=== PATIENT | female | born 1970 | race Caucasian/White ===

== ENCOUNTER 2016-08-30 12:52 | Emergency (ER) | payer OTHER ==
[2016-08-30 12:57] VITALS: BP 126/73; PULSE 81; TEMP 98.2; BMI 23.6
[2016-08-30] MEDS ORDERED: CYCLOBENZAPRINE HCL 10 MG TABLET (FP) PO ONE (13:59)
[2016-08-30] MEDS ORDERED: KETOROLAC TROMETHAMINE 60 MG/2 ML VIAL IM ONE (13:59)
--- NOTE | 2016-08-30 13:59 | PDOC ---
History of Present Illness - General Chief Complaint: Back Pain Stated Complaint: LOWER BACK PAIN Time Seen by Provider: 08/30/16 13:51 History Source: Patient Exam Limitations: No Limitations - History of Present Illness Initial Comments: 08/30/16 14:53 45-year-old female complaining of low back pain since yesterday with radiation down her right buttock. Patient states history of sciatica for the past 2-3 years but has not seen a physician recently nor has she had imaging since initial complaint. Patient denies any sensory changes distally, saddle anesthesia, incontinence, weakness of lower extremity, or skin discoloration. Patient states has not taken anything for the pain and decided come to the ER for further evaluation and medication management. Occurred: reports: yesterday Pain Location: reports: back, lower extremity Method of Injury: Yes: unknown Loss of Consciousness: no loss of consciousness Associated Symptoms (Fall): denies symptoms Past History - Past Medical History Allergies/Adverse Reactions: Allergies Allergy/AdvReac Type Severity Reaction Status Date / Time No Known Allergies Allergy Verified 08/30/16 12:57 Home Medications: Ambulatory Orders Cyclobenzaprine HCl [Flexeril 10 mg] 10 mg PO BID PRN #10 tablet MDD 2 08/30/16 Ibuprofen [Motrin -] 600 mg PO TID PRN #21 tablet 08/30/16 Other medical history: denies - Immunization History Immunization Up to Date: Yes - Psycho/Social/Smoking Cessation Hx Anxiety: No Suicidal Ideation: No Smoking Status: Yes Smoking History: Current every day smoker Number of Cigarettes Smoked Daily: 10 Information on smoking cessation initiated: No Hx Alcohol Use: Yes (social) Drug/Substance Use Hx: No Patient Lives Alone: No Lives with/in: spouse/SO Review of Systems - Review of Systems Able to Perform ROS?: Yes Constitutional: No: Symptoms Reported HEENTM: No: Symptoms Reported ABD/GI: No: Symptoms Reported Musculoskeletal: Yes: Back Pain, Muscle Pain (rt buttock) Integumentary: No: Symptoms Reported Neurological: No: Symptoms reported Endocrine: No: Symptoms Reported Hematologic/Lymphatic: No: Symptoms Reported *Physical Exam - Vital Signs Last Vital Signs Temp Pulse Resp BP Pulse Ox 98.2 F 81 18 126/73 100 08/30/16 12:54 08/30/16 12:54 08/30/16 12:54 08/30/16 12:54 08/30/16 12:54 - Physical Exam General Appearance: Yes: Nourished, Appropriately Dressed. No: Apparent Distress Extremity: positive: Normal Capillary Refill, Normal Inspection, Normal Range of Motion, Tender (right buttock over sciatica). negative: Pedal Edema Neurologic: positive: Motor Strength 5/5 (ambulatory) Medical Decision Making - Medical Decision Making 08/30/16 14:55 patient with low back pain radiating down her right buttock. Patient states history of low back pain with sciatica. Patient denies any sensory changes and had point tenderness at L2 to L5 with right sciatic tenderness. Patient in the past has been in the ER but no imaging has been done in the past. Patient will be ordered for lumbar x-ray, Flexeril, and Toradol injection. 08/30/16 15:12 X-ray negative for acute findings. Patient states feeling much better after receiving the above medications. Will discharge patient home with the same. *DC/Admit/Observation/Transfer Diagnosis at time of Disposition: Low back pain Qualifiers: Chronicity: acute Back pain laterality: right Sciatica presence: with sciatica Sciatica laterality: sciatica of right side Qualified Code(s): M54.41 - Lumbago with sciatica, right side - Discharge Dispostion Disposition: HOME Condition at time of disposition: Improved - Prescriptions Prescriptions: Cyclobenzaprine HCl [Flexeril 10 mg] 10 mg PO BID PRN #10 tablet MDD 2 PRN Reason: Back Pain Ibuprofen [Motrin -] 600 mg PO TID PRN #21 tablet PRN Reason: Pain - Patient Instructions Printed Discharge Instructions: DI for Low Back Pain Additional Instructions: Xray - for acute findings. Please take medication as needed for pain. Follow up with your physician.
[2016-08-30] MEDS ORDERED: KETOROLAC TROMETHAMINE 60 MG/2 ML VIAL ONE (14:01)
[2016-08-30] MEDS ORDERED: CYCLOBENZAPRINE HCL 10 MG TABLET (FP) ONE (14:01)
== END 2016-08-30 15:02 | disposition home or self-care (01) ==
LOC: JERFT 12:52
PROC: 3E0233Z Introduction of Anti-inflammatory into Muscle, Percutaneous Approach (ICD-10-PCS; principal; 2016-08-30)
DX: M54.41 Lumbago with sciatica, right side (principal)
CPT/HCPCS: 72100-TC; 99281-25

== ENCOUNTER 2017-10-22 15:44 | Emergency (ER) | payer OTHER ==
--- NOTE | 2017-10-22 16:04 | PDOC ---
Rapid Medical Evaluation Time Seen by Provider: 10/22/17 16:03 Medical Evaluation: Allergies Allergy/AdvReac Type Severity Reaction Status Date / Time No Known Allergies Allergy Verified 10/22/17 16:03 10/22/17 16:03 I have performed a brief in-person evaluation of this patient. The patient presents with a chief complaint of: "low back pain shooting down L leg starting this morning when i got out of bed", hx of sciatica, took motrin w/ o relief Pertinent physical exam findings: uncomfortable appearing, refusing to sit s/t pain I have ordered the following: urine preg The patient will proceed to the ED for further evaluation. Discharge Disposition - Diagnosis Low back pain - Referrals Referrals: Mark Garay MD [Primary Care Provider] - - Patient Instructions - Post Discharge Activity
[2017-10-22 16:06] VITALS: BP 120/72; PULSE 86; TEMP 98.3; BMI 25.7
[2017-10-22] MEDS ORDERED: KETOROLAC TROMETHAMINE 60 MG/2 ML VIAL IM ONE (16:48)
[2017-10-22] MEDS ORDERED: KETOROLAC TROMETHAMINE 60 MG/2 ML VIAL ONE (16:54)
--- NOTE | 2017-10-22 16:56 | PDOC ---
History of Present Illness - General Chief Complaint: Back Pain Stated Complaint: LOW BACK PAIN Time Seen by Provider: 10/22/17 16:03 History Source: Patient Exam Limitations: No Limitations - History of Present Illness Initial Comments: 10/22/17 16:49 Patient came for recurrence acute on chronic intermittent sciatica and low back pain is currently under pain management for muscle denies any exercise or trauma , has seen pain management last week but does not feel any treatments are helping to relieve her pain. Occurred: reports: other Severity: reports: moderate, severe Pain Location: reports: back Method of Injury: Yes: unknown Modifying Factors: improves with: None Loss of Consciousness: no loss of consciousness Associated Symptoms (Fall): denies symptoms Past History - Travel Traveled outside of the country in the last 30 days: No Close contact w/someone who was outside of country & ill: No - Past Medical History Allergies/Adverse Reactions: Allergies Allergy/AdvReac Type Severity Reaction Status Date / Time No Known Allergies Allergy Verified 10/22/17 16:03 Home Medications: Ambulatory Orders Cyclobenzaprine HCl 10 mg PO Q8H PRN #14 tablet 10/22/17 COPD: No Other medical history: SCIATICA - Immunization History Immunization Up to Date: Yes - Suicide/Smoking/Psychosocial Hx Smoking Status: Yes Smoking History: Current every day smoker Have you smoked in the past 12 months: Yes Number of Cigarettes Smoked Daily: 10 Information on smoking cessation initiated: Yes 'Breaking Loose' booklet given: 10/22/17 Hx Alcohol Use: Yes (social) Drug/Substance Use Hx: No Substance Use Type: None Review of Systems - Review of Systems Able to Perform ROS?: Yes Is the patient limited Grenadian proficient: Yes Constitutional: Yes: See HPI. No: Symptoms Reported, Fever, Malaise HEENTM: Yes: See HPI. No: Symptoms Reported Respiratory: No: Symptoms reported Musculoskeletal: Yes: Symptoms Reported, See HPI, Back Pain Integumentary: No: Symptoms Reported All Other Systems: Reviewed and Negative *Physical Exam - Vital Signs Last Vital Signs Temp Pulse Resp BP Pulse Ox 98.3 F 86 18 120/72 100 10/22/17 16:03 10/22/17 16:03 10/22/17 16:03 10/22/17 16:03 10/22/17 16:03 - Physical Exam General Appearance: Yes: Appropriately Dressed, Apparent Distress HEENT: positive: CARM[place], Normal ENT Inspection, TMs Normal, Pharynx Normal Neck: positive: Supple. negative: Tender Respiratory/Chest: positive: Lungs Clear, Normal Breath Sounds Gastrointestinal/Abdominal: positive: Soft. negative: Tender Musculoskeletal: positive: Normal Inspection, Decreased Range of Motion, Muscle Spasm. negative: CVA Tenderness Extremity: positive: Normal Capillary Refill. negative: Normal Inspection, Normal Range of Motion, Tender Integumentary: positive: Normal Color Neurologic: positive: hair worker II-XII NML intact, Fully Oriented, Alert, Normal Mood/ Affect, Normal Response, Motor Strength 5/5 *DC/Admit/Observation/Transfer Diagnosis at time of Disposition: Low back pain Qualifiers: Chronicity: chronic Back pain laterality: bilateral Sciatica presence: with sciatica Sciatica laterality: sciatica of left side Qualified Code(s): M54.42 - Lumbago with sciatica, left side; G89.29 - Other chronic pain; G89.29 - Other chronic pain - Discharge Dispostion Disposition: HOME Condition at time of disposition: Stable Admit: No - Referrals Referrals: Mark Garay MD [Primary Care Provider] - Cedric Schmid MD [Staff Physician] - - Patient Instructions Printed Discharge Instructions: DI for Back Pain With Sciatica Additional Instructions: Rest, no heavy lifting or exercise until pain is resolved Hot soaks to neck and low back as often as possible/hot showers or Jacuzzis No massage or therapy until spasm is gone Continue Naprosyn 500 mg tablet, 1 tablet every 8 hours for the next 3 days then as needed for pain and swelling Cyclobenzaprine 1-10mg every 8 hours as needed for spasm If not significant improvement within 24 hours with medication and rest regime, followup with private physician for change in medications and /or therapy. - Post Discharge Activity Forms/Work/School Notes: Back to Work
== END 2017-10-22 17:14 | disposition home or self-care (01) ==
LOC: JERFT 15:44
PROC: 3E0233Z Introduction of Anti-inflammatory into Muscle, Percutaneous Approach (ICD-10-PCS; principal; 2017-10-22)
DX: M54.5 Low back pain (principal); F17.210 Nicotine dependence, cigarettes, uncomplicated
CPT/HCPCS: 84703; 99281-25

== ENCOUNTER 2019-04-02 16:22 | Emergency (ER) | payer OTHER ==
[2019-04-02 16:33] VITALS: BP 142/81; PULSE 91; TEMP 98.3; BMI 26.6
--- NOTE | 2019-04-02 16:51 | PDOC ---
History of Present Illness - General Chief Complaint: Back Pain Stated Complaint: LOWER BACK PAIN Time Seen by Provider: 04/02/19 16:51 History Source: Patient Exam Limitations: No Limitations - History of Present Illness Initial Comments: 04/02/19 16:51 HPI: This 48-year-old female presents here with sciatica and lower back pain that radiates down the right side. She states that started yesterday. She has had history of back issues and does follow-up with a neurosurgeon however she is here typically once a year due to lower back pain and sciatica. Chief Compliant: Lower back pain Pain location: Lower back pain Duration: Modifying factors: Quality: Radiating: Severity: Time: PMH: Denies other than back pain FH: Pt has not recently traveled outside the country in the last 30 days. Pt has not been in contact with people who have traveled out of the country, in contact with people who have been ill with fever, n, v, d. SH: smoking use: NONE illicit drug use: NONE alcohol use: NONE employment/educational status: sexual history: PSH: Negative Home med use noted on AUG Allergies: NKA Immunizations: Past History - Past Medical History Allergies/Adverse Reactions: Allergies Allergy/AdvReac Type Severity Reaction Status Date / Time No Known Allergies Allergy Verified 04/02/19 16:53 Home Medications: Ambulatory Orders Ibuprofen [Motrin -] 600 mg PO TID #21 tablet 04/02/19 Methocarbamol [Robaxin -] 500 mg PO TID #21 tablet 04/02/19 COPD: No Other medical history: chronic lower back pain - Immunization History Immunization Up to Date: Yes - Psycho Social/Smoking Cessation Hx Smoking Status: Yes Smoking History: Never smoked Have you smoked in the past 12 months: Yes Number of Cigarettes Smoked Daily: 10 'Breaking Loose' booklet given: 10/22/17 Hx Alcohol Use: Yes (social) Drug/Substance Use Hx: No Substance Use Type: None Review of Systems - Review of Systems Able to Perform ROS?: Yes Comments:: 04/02/19 17:00 General statement: lower back pain Hematology: neg history of bleeding/blood thinners Skin: Neg for lesions, rash, bruising. HEENT: Neg symptoms Respiratory: Neg SOB or difficulty in breathing Cardiac: Neg chest pain GI: Neg pain, n/v : Neg problems on voiding MS: Neg for joint pain/stiffness, no edema Neuro: Neg for LOC, weakness, Endocrine: Neg for excess thirst/hunger, cold/heat intolerance, excess sweating Allergies: Neg for allergies *Physical Exam - Vital Signs Last Vital Signs Temp Pulse Resp BP Pulse Ox 98.3 F 91 H 18 142/81 99 04/02/19 16:30 04/02/19 16:30 04/02/19 16:30 04/02/19 16:30 04/02/19 16:30 - Physical Exam Comments: 04/02/19 17:01 General Appearance: This well appearing V/S: hemodynamically stable, afebrile Skin: WNL of pt's skin color, no signs of pallor, mottling, cyanosis Head:symmetrical Eyes: EOM's intact, PERRLA Ears: denies pain Nose: patent Throat: lips, teeth, gums, tongue, buccal mucos pink and moist Lungs: Chest symmetry equal. Cap refill <3 seconds. Lung sounds clear Cardiac: PMI at R 4MCL space, pos S1 and S2, regular rate. Abdomen: Soft, round, nontender : Not observed Muscularskeletal: Gait steady, ambulated in to ER, no edema +PMS Neuro: AAOx3, cognitively intact, speech clear and appropriate. Medical Decision Making - Medical Decision Making 04/02/19 17:02 Patient initially was seen and examined. Patient is showing symptoms of lower back pain to radiating to the right sciatica. She did walk in here with a cane she is able to sit and stand. She is been taking Motrin at home since yesterday since this began however she is here now requesting a muscle relaxer and some Toradol. She does not take any medication she has no past medical history except for chronic lower back pain that she has been seen here for in the past. Discharge - Discharge Information Problems reviewed: Yes Clinical Impression/Diagnosis: Low back pain Qualifiers: Chronicity: acute Back pain laterality: midline Sciatica presence: with sciatica Sciatica laterality: sciatica of right side Qualified Code(s): M54.41 - Lumbago with sciatica, right side Disposition: HOME - Admission No - Follow up/Referral Referrals: Tyrell Paz MD [Primary Care Provider] - - Patient Discharge Instructions Patient Printed Discharge Instructions: DI for Low Back Pain Additional Instructions: Discharge instructions 1. Please follow up with your primary physician within the next few days and explain that you have been seen here in the Emergency Room. 2. If you experience any worsening of symptoms, please return to the ER 3. Rest 4. Drink plenty of water No heavy lifting bending or pulling. You received a dose of Toradol here. Continue with Motrin or Aleve at home. You have also received a prescription for Robaxin and a muscle relaxer to be used at home. - Post Discharge Activity Work/Back to School Note: Back to Work
[2019-04-02] MEDS ORDERED: KETOROLAC TROMETHAMINE 30 MG/1 ML VIAL IM ONE (16:57)
[2019-04-02] MEDS ORDERED: KETOROLAC TROMETHAMINE 30 MG/1 ML VIAL ONE (16:59)
== END 2019-04-02 17:11 | disposition home or self-care (01) ==
LOC: JERFT 16:22
PROC: 3E0233Z Introduction of Anti-inflammatory into Muscle, Percutaneous Approach (ICD-10-PCS; principal; 2019-04-02)
DX: M54.41 Lumbago with sciatica, right side (principal)
CPT/HCPCS: 99281-25

== ENCOUNTER 2019-04-03 17:07 | Emergency (ER) | payer OTHER ==
[2019-04-03 17:15] VITALS: BP 127/83; PULSE 89; TEMP 98.8
[2019-04-03] MEDS ORDERED: KETOROLAC TROMETHAMINE 60 MG/2 ML VIAL IM ONE (17:24)
--- NOTE | 2019-04-03 17:26 | PDOC ---
History of Present Illness - General Chief Complaint: Pain Stated Complaint: PAIN SCIATICA Time Seen by Provider: 04/03/19 17:19 History Source: Patient - History of Present Illness Occurred: reports: other Severity: reports: severe Pain Location: reports: back Past History - Past Medical History Allergies/Adverse Reactions: Allergies Allergy/AdvReac Type Severity Reaction Status Date / Time No Known Allergies Allergy Verified 04/03/19 17:14 Home Medications: Ambulatory Orders Ibuprofen [Motrin -] 600 mg PO TID #21 tablet 04/02/19 Methocarbamol [Robaxin -] 500 mg PO TID #21 tablet 04/02/19 Naproxen 500 mg PO BID #14 tablet 04/03/19 COPD: No - Immunization History Immunization Up to Date: Yes - Psycho Social/Smoking Cessation Hx Smoking Status: Yes Smoking History: Never smoked Have you smoked in the past 12 months: Yes Number of Cigarettes Smoked Daily: 10 Information on smoking cessation initiated: No 'Breaking Loose' booklet given: 10/22/17 Hx Alcohol Use: No Drug/Substance Use Hx: No Substance Use Type: None Review of Systems - Review of Systems Constitutional: No: Chills, Fever ABD/GI: No: Nausea, Poor Fluid Intake, Vomiting Musculoskeletal: Yes: Back Pain Neurological: No: Numbness, Tingling, Weakness *Physical Exam - Vital Signs Last Vital Signs Temp Pulse Resp BP Pulse Ox 98.8 F 89 19 127/83 100 04/03/19 17:13 04/03/19 17:13 04/03/19 17:13 04/03/19 17:13 04/03/19 17:13 - Physical Exam Comments: 04/03/19 17:26 Pt standing up with cane in examination room General Appearance: Yes: Appropriately Dressed, Moderate Distress HEENT: positive: Normal Voice Neck: positive: Supple Gastrointestinal/Abdominal: positive: Soft. negative: Tender Musculoskeletal: positive: Vertebral Tenderness (to L lower back). negative: CVA Tenderness Integumentary: positive: Dry, Warm Neurologic: positive: Fully Oriented, Alert, Normal Mood/Affect, Motor Strength 5/5 Medical Decision Making - Medical Decision Making 04/03/19 17:24 48-year-old female, endorses history of herniated disc to LS spine, s/p PT in the past, follows up with neuro, here for second visit this week for her usual lower back pain. Patient was here yesterday for L lower pain radiating to left leg which is not new for pt. Was given 30 mg IM toradol and sent home with Robaxin and motrin but states meds not helping. States she also has other muscle relaxants and tramadol at home which does not relieve her pain. Unable to take percocet as unable to tolerate per patient. Denies acute sensory changes , any lower extremity weakness, saddle anesthesia or bowel or bladder incontinence. Patient states she thinks if she was given 60 mg IM Toradol yesterday, her pain would have improved but for unclear reason was only given 30 IM per records. Patient states she usually gets flareup of her sciatica once a year. Has been ambulating with cane since pain started See exam Acute on chronic LBP Endorses herniated disc w/ L sciatica 2nd visit for same Given meds yesterday w/ no relief No acute neuro sxs No infectious sxs No trauma Not improving w/ meds at home -Dose of 60 IM toradol and reassess 04/03/19 17:49 Pt offered further observation but declines. Sent home with naproxen. Patient to follow-up with her neurologist tomorrow Discharge - Discharge Information Problems reviewed: Yes Clinical Impression/Diagnosis: Lower back pain Qualifiers: Chronicity: acute Back pain laterality: left Sciatica presence: with sciatica Sciatica laterality: sciatica of left side Qualified Code(s): M54.42 - Lumbago with sciatica, left side Condition: Stable Disposition: HOME - Additional Discharge Information Prescriptions: Naproxen 500 mg PO BID #14 tablet - Follow up/Referral Referrals: Tyrell Paz MD [Primary Care Provider] - - Patient Discharge Instructions Patient Printed Discharge Instructions: Low Back Pain Additional Instructions: Take naproxen and Flexeril as directed and follow-up with your neurologist this week If symptoms worsen, return to ER - Post Discharge Activity
== END 2019-04-03 17:58 | disposition home or self-care (01) ==
LOC: JERFT 17:07
PROC: 3E0233Z Introduction of Anti-inflammatory into Muscle, Percutaneous Approach (ICD-10-PCS; principal; 2019-04-03)
DX: M54.42 Lumbago with sciatica, left side (principal)
CPT/HCPCS: 99281-25

== ENCOUNTER 2019-08-09 15:15 | Emergency (ER) | payer OTHER ==
[2019-08-09 15:30] VITALS: BP 134/91; PULSE 87; TEMP 98.5; BMI 26.6
--- NOTE | 2019-08-09 15:31 | PDOC ---
Rapid Medical Evaluation Chief Complaint: Back Pain Time Seen by Provider: 08/09/19 15:28 Medical Evaluation: Allergies Allergy/AdvReac Type Severity Reaction Status Date / Time No Known Allergies Allergy Verified 08/09/19 15:24 08/09/19 15:28 Pt c/o : LBP since wednesday morning, denies change in activity, no urinary complaints, no rash, denies radiation of pain Pt on brief exam: ambulatory, no vertebral tenderness, no sciatica tenderness + right paraspinous tenderness at lumbar level Pt ordered for: none Pt to proceed to the ED Discharge Disposition - Diagnosis Low back pain - Referrals - Patient Instructions - Post Discharge Activity
[2019-08-09] MEDS ORDERED: KETOROLAC TROMETHAMINE 60 MG/2 ML VIAL IM ONE (15:52)
[2019-08-09] MEDS ORDERED: KETOROLAC TROMETHAMINE 60 MG/2 ML VIAL ONE (15:58)
--- NOTE | 2019-08-09 15:59 | PDOC ---
History of Present Illness - General Chief Complaint: Back Pain Stated Complaint: LBP Time Seen by Provider: 08/09/19 15:28 History Source: Patient - History of Present Illness Occurred: reports: other Pain Location: reports: back Past History - Past Medical History Allergies/Adverse Reactions: Allergies Allergy/AdvReac Type Severity Reaction Status Date / Time No Known Allergies Allergy Verified 08/09/19 15:24 Home Medications: Ambulatory Orders Acetaminophen [Tylenol -] 1,000 mg PO Q6H #30 tablet 08/09/19 Tramadol HCl 50 mg PO Q6H #15 tablet MDD 200 mg 08/09/19 COPD: No Thyroid Disease: Yes - Immunization History Immunization Up to Date: Yes - Psycho Social/Smoking Cessation Hx Smoking Status: Yes Smoking History: Current every day smoker Have you smoked in the past 12 months: Yes Number of Cigarettes Smoked Daily: 5 Information on smoking cessation initiated: No 'Breaking Loose' booklet given: 10/22/17 Hx Alcohol Use: No Drug/Substance Use Hx: No Substance Use Type: None Review of Systems - Review of Systems Constitutional: No: Chills, Fever ABD/GI: No: Nausea, Vomiting, Abdominal cramping : No: Burning, Dysuria, Discharge, Frequency, Flank Pain, Hematuria Musculoskeletal: Yes: Back Pain Neurological: No: Numbness, Tingling, Weakness *Physical Exam - Vital Signs Last Vital Signs Temp Pulse Resp BP Pulse Ox 98.5 F 87 18 134/91 97 08/09/19 15:27 08/09/19 15:27 08/09/19 15:27 08/09/19 15:27 08/09/19 15:27 - Physical Exam General Appearance: Yes: Appropriately Dressed. No: Apparent Distress HEENT: positive: Normal Voice Neck: positive: Supple Respiratory/Chest: negative: Respiratory Distress Gastrointestinal/Abdominal: positive: Soft. negative: Tender Musculoskeletal: positive: Vertebral Tenderness (to R lower back) Integumentary: positive: Dry, Warm. negative: Rash Neurologic: positive: Fully Oriented, Alert, Normal Mood/Affect, Motor Strength 5/5 Medical Decision Making - Medical Decision Making 08/09/19 15:53 48-year-old female, w/ known h/o herniated disc to LS spine, chronic back pain, s/p PT in the past, follows up with neuro, now undergoing chiropractic therapy, here for right lower back pain that has been getting worse x4 days. States pain hurts to touch and with movement and feels somewhat different from her usual back pain in that current pain very tender with touch vs "deeper" pain in past. No rash to site. Denies radiation of pain, acute sensory changes, weakness , bowel bladder incontinence. No recent trauma. Taking motrin w/ no relief. Denies dysuria, hematuria, nausea vomiting fever or chills. See exam Acute on chronic LBP Known herniated disc to LS spine Taking motrin w/ no relief No red flags at this time -ua -pain meds and reassess in ED 08/09/19 16:57 Urine unremarkable. Patient improved with Toradol. Will dc with pain control and have patient follow-up with her spinal specialist Discharge - Discharge Information Problems reviewed: Yes Clinical Impression/Diagnosis: Low back pain Qualifiers: Chronicity: chronic Back pain laterality: right Sciatica presence: without sciatica Qualified Code(s): M54.5 - Low back pain Condition: Improved Disposition: HOME - Additional Discharge Information Prescriptions: Acetaminophen [Tylenol -] 1,000 mg PO Q6H #30 tablet Tramadol HCl 50 mg PO Q6H #15 tablet MDD 200 mg - Follow up/Referral Referrals: Tyrell Paz MD [Primary Care Provider] - - Patient Discharge Instructions Additional Instructions: Take medications as directed for pain and follow-up with your neurologist as needed - Post Discharge Activity Work/Back to School Note: Back to Work
[2019-08-09 16:49] LABS: URINE APPEARANCE CLEAR; URINE BILIRUBIN NEGATIVE (NEGATIVE); URINE COLOR YELLOW; URINE GLUCOSE (UA) NEGATIVE (NEGATIVE); URINE KETONE NEGATIVE (NEGATIVE); URINE LEUK ESTERASE NEGATIVE (NEGATIVE); URINE NITRITE NEGATIVE (NEGATIVE); URINE PROTEIN NEGATIVE (NEGATIVE)
== END 2019-08-09 17:01 | disposition home or self-care (01) ==
LOC: JERFT 15:15
DX: M54.5 Low back pain (principal); F17.210 Nicotine dependence, cigarettes, uncomplicated; G89.29 Other chronic pain
CPT/HCPCS: 81003; 99284-25

== ENCOUNTER 2019-08-24 | Emergency (ER) | payer OTHER ==
[2019-08-24 00:51] VITALS: TEMP 98.1; BMI 31.8
--- NOTE | 2019-08-24 01:54 | PDOC ---
History of Present Illness - General Chief Complaint: Vaginal Bleeding Stated Complaint: VAGINAL BLEEDING, URINARY PROBLEM Time Seen by Provider: 08/24/19 01:52 - History of Present Illness Initial Comments: 08/24/19 01:53 48 y/o F with PMH of Chronic back pain, Diabetes (lifestyle modifications only) , HTN, hypothyroidism who present to the ED because of acute worsening of her back pain R>L since midnight. Pain is sharp in nature radiating to the lower abdomen and associated with dysuria, frequency, urgency and hematuria w/ clot. She denies any fever, nausea/vomiting but endosrses chills. Also a week ago, pt was started on methylprednisolone 4mg for her back pain and since then she has been having epigastric pain and acid reflux. 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 last pap early 2018 with no abnormal findings. No recent trauma, manipulations or intercourse (2 weeks ago). PSH: as above Social : quit one week ago. 1/2 PPD for 30 yrs ROS: Constitutional: no fever,no chills HEENT: no throat pain, no dysphagia Cardiovascular: no chest pain, no palpitations Respiratory: no cough shortness of breath Gastrointestinal: no Nausea and vomiting Genitourinary: dysuria, urgency, frequency, hematuria Musculoskeletal: no myalgia, R flank pain Skin: no bruising Neurologic:no weakness Psych: no agitation, no anxiety PE: VSS GEN: NAD Neuro: AAOx2, motor strength 5/5 in all muscle groups, sensation intact throughout HEENT: PERRLA, moist membrane, clear conjunctiva NECK: no JVD CHEST:vesicular breath sounds b/l HEART:RRR, no murmur, rubs or gallop ABDOMEN: + BS, soft and flat, flank pain R>L Extremities: 2+ pulses, no edema SKIN: no bruises MSK: chronic back pain, no arthralgia or joint tenderness Assessment: UTI vs nephrolithiasis 08/24/19 01:55 Plan: CBC, CMP, CT A/P without contrast, UA, UC 08/24/19 01:58 CBC,CMP WBC 18.7 K/mm3 (4.0-10.0) H 08/24/19 02:00 RBC 4.44 M/mm3 (3.60-5.2) 08/24/19 02:00 Hgb 13.9 GM/dL (10.7-15.3) 08/24/19 02:00 Hct 41.4 % (32.4-45.2) 08/24/19 02:00 MCV 93.4 fl (80-96) 08/24/19 02:00 MCH 31.4 pg (25.7-33.7) 08/24/19 02:00 MCHC 33.6 g/dl (32.0-36.0) 08/24/19 02:00 RDW 14.0 % (11.6-15.6) 08/24/19 02:00 Plt Count 239 K/MM3 (134-434) 08/24/19 02:00 MPV 9.0 fl (7.5-11.1) 08/24/19 02:00 Absolute Neuts (auto) 11.7 K/mm3 (1.5-8.0) H 08/24/19 02:00 Neutrophils % 62.8 % (42.8-82.8) 08/24/19 02:00 Lymphocytes % 27.5 % (8-40) 08/24/19 02:00 Monocytes % 7.0 % (3.8-10.2) 08/24/19 02:00 Eosinophils % 1.5 % (0-4.5) 08/24/19 02:00 Basophils % 1.2 % (0-2.0) 08/24/19 02:00 Nucleated RBC % 0 % (0-0) 08/24/19 02:00 Sodium 139 mmol/L (136-145) 08/24/19 02:00 Potassium 4.0 mmol/L (3.5-5.1) 08/24/19 02:00 Chloride 106 mmol/L (98-107) 08/24/19 02:00 Carbon Dioxide 29 mmol/L (21-32) 08/24/19 02:00 Anion Gap 5 MMOL/L (8-16) L 08/24/19 02:00 BUN 21.8 mg/dL (7-18) H 08/24/19 02:00 Creatinine 0.9 mg/dL (0.55-1.3) 08/24/19 02:00 Est GFR (CKD-EPI)AfAm 88.25 08/24/19 02:00 Est GFR (CKD-EPI)NonAf 76.14 08/24/19 02:00 Random Glucose 91 mg/dL (74-106) 08/24/19 02:00 Calcium 9.3 mg/dL (8.5-10.1) 08/24/19 02:00 Total Bilirubin 0.3 mg/dL (0.2-1) 08/24/19 02:00 AST 12 U/L (15-37) L 08/24/19 02:00 ALT 24 U/L (13-61) 08/24/19 02:00 Alkaline Phosphatase 50 U/L (45-117) 08/24/19 02:00 Total Protein 6.9 g/dl (6.4-8.2) 08/24/19 02:00 Albumin 4.0 g/dl (3.4-5.0) 08/24/19 02:00 leukocytosis at 18.7 Prerenal azotemia >20:1 BUN/Cr UA with 3+ protein, 3+ blood, 3+ leuk est, 544 WBC, bacteria 0.5 CT A/P no e/o stones Diagnosis consistent with UTI. will give nitrogurantoin 100mg BID x5 days and nephro follow up for proteinuria, and hematuria with urine cast of 12 in the setting of diabetes hx with no medication for further evaluation Past History - Past Medical History Allergies/Adverse Reactions: Allergies Allergy/AdvReac Type Severity Reaction Status Date / Time No Known Allergies Allergy Verified 08/24/19 00:37 Home Medications: Ambulatory Orders Diazepam [Valium] 5 mg PO HS 08/24/19 Methylprednisolone [Medrol Dose Héctor] 4 mg PO ASDIR 08/24/19 Nitrofurantoin Macrocrystal [Nitrofurantoin] 100 mg PO BID #10 capsule 08/24/19 Thyroid,Pork [Burns Thyroid] 15 mg PO DAILY 08/24/19 Triamterene/Hydrochlorothiazid [Dyazide 37.5-25 Capsule] 1 each PO DAILY COPD: No Thyroid Disease: Yes - Reproductive History Is Patient Now?: No - Immunization History Immunization Up to Date: Yes - Psycho Social/Smoking Cessation Hx Smoking Status: Yes Smoking History: Never smoked Have you smoked in the past 12 months: Yes Number of Cigarettes Smoked Daily: 5 'Breaking Loose' booklet given: 10/22/17 Hx Alcohol Use: No Drug/Substance Use Hx: No Substance Use Type: None *Physical Exam - Vital Signs Last Vital Signs Temp Pulse Resp BP Pulse Ox 98.1 F 84 18 143/93 99 08/24/19 00:38 08/24/19 00:38 08/24/19 00:38 08/24/19 00:38 08/24/19 00:38 ED Treatment Course - LABORATORY CBC & Chemistry Diagram: 08/24/19 02:00 08/24/19 02:00 - RADIOLOGY Radiology Studies Ordered: Category Date Time Status ABDOMEN & PELVIS CT W/O CONTR [CT] Stat CT Scan 08/24/19 01:51 Ordered Discharge - Discharge Information Problems reviewed: Yes Clinical Impression/Diagnosis: UTI (urinary tract infection) Qualifiers: Urinary tract infection type: site unspecified Hematuria presence: with hematuria Qualified Code(s): N39.0 - Urinary tract infection, site not specified Condition: Improved Disposition: HOME - Admission No - Additional Discharge Information Prescriptions: Nitrofurantoin Macrocrystal [Nitrofurantoin] 100 mg PO BID #10 capsule - Follow up/Referral Referrals: Svetlana Beltran MD [Staff Physician] - Call tomorrow Tyrell Paz MD [Primary Care Provider] - Call tomorrow - Patient Discharge Instructions Patient Printed Discharge Instructions: DI for Urinary Tract Infection (UTI) Additional Instructions: You came into the ED because of sudden onset of urinary symptoms. We scanned your abdomen for stones in your kidney and it came back negative. We also tested your blood and your urine which were positive for an infection UTI. We also found some abnormality in your urine necessitating further evaluation by a kidney Doctor. Please follow up with the head waiter/waitress Dr Beltran within one week; please call tomorrow for an appointment tomorrow. Medications: Please take the following for your UTI please take nitrofurantoin 100mg by mouth twice a day 08/24/19-08/28/19 you can also take over the counter pain medication (motrin or tylenol) If you begin to experience worsening bleeding, fevers, chills, persistent back pain pleae return to the emergency room immediately - Post Discharge Activity
[2019-08-24] MEDS ORDERED: FAMOTIDINE 20 MG TABLET PO ONE (01:56)
[2019-08-24] MEDS ORDERED: ACETAMINOPHEN 1000 MG/100 ML VIAL (NON FORMULARY) IVPB ONE (01:59)
[2019-08-24] MEDS ORDERED: ACETAMINOPHEN INJECTION 100 ML IVPB ONE (02:02)
[2019-08-24] MEDS ORDERED: FAMOTIDINE 20 MG TABLET ONE (02:06)
[2019-08-24 02:19] LABS: BASO % 1.2 % (0-2.0); EOS % 1.5 % (0-4.5); HEMATOCRIT 41.4 % (32.4-45.2); HEMOGLOBIN 13.9 GM/dL (10.7-15.3); LYMPH % 27.5 % (8-40); MCH 31.4 pg (25.7-33.7); MCHC 33.6 g/dl (32.0-36.0); MEAN CELL VOLUME 93.4 fl (80-96); NEUT % 62.8 % (42.8-82.8); PLATELET COUNT 239 K/MM3 (134-434); RBC 4.44 M/mm3 (3.60-5.2); WHITE BLOOD COUNT 18.7 K/mm3 (4.0-10.0)
[2019-08-24 02:47] LABS: BILIRUBIN,TOTAL 0.3 mg/dL (0.2-1); BLOOD UREA NITROGEN 21.8 mg/dL (7-18); CALCIUM 9.3 mg/dL (8.5-10.1); CREATININE 0.9 mg/dL (0.55-1.3); TOT PROT 6.9 g/dl (6.4-8.2)
[2019-08-24 03:07] LABS: EPI CELLS 0.1 /HPF (0-5/HPF); URINE APPEARANCE TURBID; URINE BACTERIA 0.5 /hpf (NEGATIVE); URINE BILIRUBIN NEGATIVE (NEGATIVE); URINE COLOR RED; URINE GLUCOSE (UA) NEGATIVE (NEGATIVE); URINE KETONE NEGATIVE (NEGATIVE); URINE LEUK ESTERASE 3+ (NEGATIVE); URINE NITRITE NEGATIVE (NEGATIVE); URINE PROTEIN 3+ (NEGATIVE); URINE UROBILINOGEN 0.2 mg/dL (0.2-1.0); URINE WBC 544 /hpf (0-5); YEAST REVIEW (NEGATIVE)
--- NOTE | 2019-08-24 03:28 | PDOC ---
Documentation entered by Alix Valles SCRIBE, acting as scribe for Surekha Weston DO. Surekha Weston DO: This documentation has been prepared by the Hai aranda Nirvannie, SCRIBE, under my direction and personally reviewed by me in its entirety. I confirm that the documentation accurately reflects all work, treatment, procedures, and medical decision making performed by me. Attending Attestation - Resident Resident Name: Deisi Lozada - ED Attending Attestation I have performed the following: I have examined & evaluated the patient, The case was reviewed & discussed with the resident, I agree w/resident's findings & plan, Exceptions are as noted - HPI HPI: 08/24/19 02:32 The patient is a 48 year old female, with a significant past medical history of herniated disc to LS spine, chronic back pain, diabetes, hypertension, hypothyroidism, HPV (s/p total hysterectomy), who presents to the emergency department with progressively worsening abdominal pain described as sharp with associated dysuria, frequency, urgency and hematuria. Patient recently was placed on methylprednisolone 4mg for chronic back pain and since then she has been having epigastric pain and acid reflux. She denies recent chest pain or shortness of breath. Allergies: NKDA - Physicial Exam PE: 08/24/19 02:32 Agree with resident exam. - Medical Decision Making 08/24/19 03:27 48-year-old female with chronic back pain, worse now with frequency urgency and dysuria as well as gross hematuria Urinalysis consistent with urinary tract infection CT scan of the abdomen pelvis shows no significant acute abnormality explaining symptoms We will DC on antibiotics with urine culture pending Recommended follow-up with primary care
[2019-08-24 04:05] LABS: URINE RBC 2177.4 /hpf (0-4)
[2019-08-24 04:06] LABS: HYALINE CASTS NO CAST SEEN /lpf (0-8)
[2019-08-24] MEDS ORDERED: NITROFURANTOIN MACROCRYSTAL 50 MG CAPSULE (FP) ONE (04:07)
[2019-08-24] MEDS ORDERED: NITROFURANTOIN MACROCRYSTAL 50 MG CAPSULE (FP) PO SCH (04:15)
[2019-08-24 04:20] VITALS: BP 130/78; PULSE 80
== END 2019-08-24 04:24 | disposition home or self-care (01) ==
LOC: JER
PROC: 3E033NZ Introduction of Analgesics, Hypnotics, Sedatives into Peripheral Vein, Percutaneous Approach (ICD-10-PCS; principal; 2019-08-24)
DX: N39.0 Urinary tract infection, site not specified (principal); R31.9 Hematuria, unspecified; R80.9 Proteinuria, unspecified; I10 Essential (primary) hypertension; E11.9 Type 2 diabetes mellitus without complications; E03.9 Hypothyroidism, unspecified
CPT/HCPCS: 36415; 74176-TC; 80053; 81003; 85025; 87086; 99285-25; J0131

== ENCOUNTER 2020-01-08 04:44 | Inpatient (IN) | payer OTHER ==
[2020-01-05 09:19] VITALS: BMI 27.6
[2020-01-08] MEDS ORDERED: HEPARIN NA (PORCINE) 5,000 UNITS/ML 1ML VIAL ONE ×2 (07:12→08:20)
[2020-01-08] MEDS ORDERED: THROMBIN (BOVINE) 5,000 UNIT VIAL TP ONE ×4 (07:12→12:13)
[2020-01-08] MEDS ORDERED: BENZOIN/ALOE VERA/STORAX/TOLU 58 ML BOTTLE ONE (07:15)
[2020-01-08] MEDS ORDERED: PROPOFOL 20 ML ONE ×13 (08:15→12:08)
[2020-01-08] MEDS ORDERED: MIDAZOLAM HCL 2 MG/2 ML SINGLE DOSE VIAL ONE (08:15)
[2020-01-08] MEDS ORDERED: fentaNYL CITRATE 250 MCG/5 ML VIAL ONE ×3 (08:23→12:39)
[2020-01-08] MEDS ORDERED: SUCCINYLCHOLINE CHLORIDE 200 MG/10 ML SYRINGE ONE (08:34)
[2020-01-08] MEDS ORDERED: VANCOMYCIN 1,000 MG VIAL (RESTRICTED TO ID ONLY) IVPB ONE (08:45)
[2020-01-08] MEDS ORDERED: ceFAZolin 2 GRAM PREMIX BAG IVPB ONE (08:45)
[2020-01-08] MEDS ORDERED: TRANEXAMIC ACID 1000 MG/10 ML VIAL ONE ×3 (09:47→12:03)
[2020-01-08] MEDS ORDERED: KETOROLAC TROMETHAMINE 30 MG/1 ML VIAL ONE (12:02)
[2020-01-08] MEDS ORDERED: ONDANSETRON 4 MG/2 ML VIAL ONE (12:02)
[2020-01-08] MEDS ORDERED: ceFAZolin SODIUM 1 GM VIAL ONE ×3 (12:03→13:25)
[2020-01-08] MEDS ORDERED: DEXAMETHASONE SOD PHOSPHATE 4 MG/1 ML VIAL ONE ×3 (12:03)
[2020-01-08] MEDS ORDERED: VANCOMYCIN 1,000 MG VIAL (RESTRICTED TO ID ONLY) ONE (12:03)
[2020-01-08] MEDS ORDERED: ceFAZolin SODIUM 1 GM VIAL IVPB ONE (13:30)
--- NOTE | 2020-01-08 13:51 | PN ---
Progress Note (short form) - Note Progress Note: 49F s/p C5, C6 corpectomies, C4-C7 anterior cervical decompression, cage reconstruction, and instrumented fusion POD #0. -Airway observation: In case of emergency, remove anterior cervical spine dressing, trim single end loop, and pull out running suture; ok to cut suture if needed to decompress hematoma. -Maintain head of bed 45-60 degrees. -Pain medication: per anaesthesia team; oral meds (oxycodone preferred), no WRAPPER CASHIER; NO NSAID's. -Hard cervical spine collar. -DVT PPx: -Mechanical only: MANINDER's, SCD's. -Post-op Ancef x 3 doses. -f/u AM labs. -Incentive spirometry. -PT/OT/Rehab, OOB. -WBAT B/L LE. -PWB B/L UE: 5lbs. -d/c Contreras catheter in PACU; f/u TOV (8 hours max). -Decadron 10mg IV at midnight tonight. -Keep dressing clean & dry. -No heavy lifting (>5 lbs), bending or twisting x 6 months post op. -Start with soft diet; advance diet as tolerated. -B/L UE & LE NV checks. -f/u post-op x-rays tomorrow. -Care per ICU & primary medical hospitalist: Dr. Guevara. -Discharge planning: f/u [facility] [place] office 7-10 days after discharge; call for appointment; . Darnell Jang MD (Orthopaedic Surgery).
--- NOTE | 2020-01-08 13:56 | OP ---
Operative Note - Note: Operative Date: 01/08/20 Pre-Operative Diagnosis: 1. C4-C5, C5-C6, C6-C7 intervertebral disc disorders with radiculopathy. 2. Severe C4-C7 spinal stenosis with myelopathy. 3. C4-C7 axial instability, kyphosis, myofascial pain complex and cervical enthesopathy Operation: 1. C5, C6 corpectomies. 2. C4-5, C5-C6, C6-C7 discectomies and anterior cervical decompression. 3. C4-C7 anterior cervical cage reconstruction. 4. C4-C7 instrumented spinal fusion. 5. Bone autograft. 6. Bone allograft Findings: Improved EMG's at end of case Implants: Choice Spine Scio Cage: 40mm [id number]. Precision Spine Slimplicity Plate: 46mm. Screws: 12x4.0 x 4 Screws Post-Operative Diagnosis: Same as Pre-op Surgeon: Darnell Jang Electronic Warfare Technician: Darnell Jang Anesthesiologist/ASSEMBLY PRESS OPERATOR: Igor Galan Anesthesia: General Specimens Removed: C4-C5, C5-C6, C6-C7 discs Estimated Blood Loss (mls): 150 Blood Volume Replaced (mls): 70 (Cell Saver) Fluid Volume Replaced (mls): 2,000 (Crystalloid) Operative Report Dictated: Yes
[2020-01-08] MEDS ORDERED: PROMETHAZINE HCL 25 MG/1 ML VIAL IVPB PRN (13:58)
[2020-01-08] MEDS ORDERED: ONDANSETRON 4 MG/2 ML VIAL IVPUSH PRN (13:59)
[2020-01-08] MEDS ORDERED: oxyCODONE HCL 5 MG TABLET PO PRN ×2 (13:59)
[2020-01-08] MEDS ORDERED: LACTATED RINGERS SOLUTION 1,000 ML IV SCH (14:00)
[2020-01-08] MEDS ORDERED: HYDROmorphone *PCA* 10MG/50ML DISP.SYRIN PCA SCH (14:00)
[2020-01-08] MEDS ORDERED: HYDROmorphone *PCA* 10MG/50ML DISP.SYRIN ONE (14:05)
[2020-01-08] MEDS ORDERED: HYDROmorphone *PCA* 10MG/50ML DISP.SYRIN PCA ONE (14:15)
--- NOTE | 2020-01-08 16:11 | CONSULT ---
Consultation: REQUESTING PROVIDER: Dr. Jang CONSULT REQUEST: We have been asked to medically evaluate this patient for post- op monitoring. HISTORY OF PRESENT ILLNESS: Pt is a 49 y/o female with HTN and hypothyroidism who presents for post-op monitoring following C5, C6 corpectomies, C4-C5, C5-C6, C6-C7 discectomies and anterior cervical decompression, C4-C7 anterior cervical cage reconstruction with instrumented spinal fusion. Pt reports some right anterior neck pain at interview with hoarseness. She denies difficulty breathing, chest pain, abdominal pain, nausea, or vomiting. 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 HEAD: Normal with no signs of trauma. EYES: Pupils equal, round and reactive to light, extraocular movements intact, conjunctiva clear. EARS, NOSE, THROAT: Ears normal, nares patent, moist mucous membranes. Hoarse voice. NECK: Cervical collar present with anterior neck dressing dry and intact, no fluctuance or induration of neck, tender to palpation. LUNGS: Clear to auscultation bilaterally in anterior and lateral dean. No stridor. No wheezes, and no crackles. HEART: Regular rate and rhythm, no murmur. ABDOMEN: Soft, nontender, not distended, normoactive bowel sounds. MUSCULOSKELETAL: Normal range of motion at all joints. UPPER EXTREMITIES: Warm, well-perfused. No peripheral edema. LOWER EXTREMITIES: Warm, well-perfused. No peripheral edema. NEUROLOGICAL: Cranial nerves II-XII grossly intact. Normal speech. Sensation and motor function of extremities grossly intact. PSYCHIATRIC: Cooperative. Good eye contact. Appropriate mood and affect. SKIN: Warm, dry, normal turgor. Laboratory Results - last 24 hr 01/08/20 06:09 Blood Type O POSITIVE Antibody Screen Negative Active Medications Generic Name Dose Route Start Last Admin Trade Name Freq PRN Reason Stop Dose Admin Cholecalciferol 6,000 unit 01/09/20 10:00 Vitamin D3 - PO DAILY [facility] Dexamethasone Sodium Phosphate 10 mg 01/08/20 23:45 Decadron Injection - IVPUSH 01/08/20 23:46 ONCE ONE Fentanyl 50 mcg 01/08/20 13:58 Sublimaze Injection - IVPUSH [id number] PRN PAIN-PACU ORDER X 4 DOSES ONLY Hydromorphone HCl 10 mg 01/08/20 14:00 Hydromorphone 10 Mg/50 Ml-Ns SPRING ASSEMBLER 01/09/20 13:59 SPRING ASSEMBLER [facility] Protocol Cefazolin Sodium 1 gm/ 50 mls @ 100 mls/hr 01/08/20 19:00 Dextrose IVPB 01/09/20 07:29 Q6H [facility] Lactated Ringer's 1,000 mls @ 125 mls/hr 01/08/20 14:00 Lactated Ringers Solution IV ASDIR [facility] Ondansetron HCl 4 mg 01/08/20 13:58 Zofran Injection IVPUSH Q6H PRN NAUSEA AND/OR VOMITING Oxycodone HCl 5 mg 01/08/20 13:59 Roxicodone - PO 01/09/20 13:58 Q4H PRN PAIN LEVEL 1-5 Oxycodone HCl 10 mg 01/08/20 13:59 Roxicodone - PO Q4H PRN PAIN LEVEL 6-10 Promethazine HCl 12.5 mg 01/08/20 13:58 Phenergan Injection - IVPB Q6H PRN NAUSEA-FOR RESCUE AFTER 15 MIN Thyroid 15 mg 01/09/20 10:00 Buckley Thyroid - PO DAILY [facility] Triamterene/HCTZ 1 cap 01/09/20 10:00 Dyazide 25/37.5mg PO DAILY [facility] ASSESSMENT/PLAN: Pt is a 49 y/o female with HTN and hypothyroidism who presents for post-op monitoring following POD #0 C5, C6 corpectomies, C4-C5, C5-C6, C6-C7 discectomies and anterior cervical decompression, C4-C7 anterior cervical cage reconstruction with instrumented spinal fusion. #neuro/MSK -grossly intact -monitor for signs of stridor, low threshold for steroid use -dexamethasone 10mg tonight x1 -SPRING ASSEMBLER pump Dilaudid -oxycodone PRN -PT eval -HOB 30-45 degrees #cardio -hemodynamically stable -continue home triamterene/HCTZ #pulm -satting in low 90s on 2L NC, likely from not wanting to inhale deeply -incentive spirometer #renal -monitor labs #endo -continue home Buckley Thyroid #ID -cefazolin 1g x3 doses post-op #GI -advance diet as tolerated DVT Ppx SCDs TEDs FEN LR 125mL/hr monitor labs puree diet dispo ICU FULL CODE We will continue to follow the patient. Thank you for this consultative opportunity. Visit type - Emergency Visit Emergency Visit: Yes ED Registration Date: 01/08/20 Care time: The patient presented to the Emergency Department on the above date and was hospitalized for further evaluation of their emergent condition. - New Patient This patient is new to me today: Yes Date on this admission: 01/08/20 - Critical Care Critical Care patient: Yes Total Critical Care Time (in minutes): 37 Critical Care Statement: The care of this patient involved high complexity decision making to prevent further life threatening deterioration of the patient's condition and/or to evaluate & treat vital organ system(s) failure or risk of failure. ATTENDING PHYSICIAN STATEMENT I saw and evaluated the patient. I reviewed the resident's note and discussed the case with the resident. I agree with the resident's findings and plan as documented. SUBJECTIVE: OBJECTIVE: ASSESSMENT AND PLAN:
[2020-01-08] MEDS ORDERED: CEFAZOLIN 1 GM in DEXTROSE 5%-WATER - 50 ML IVPB SCH (19:00)
[2020-01-08] MEDS: ONDANSETRON 4 MG/2 ML VIAL IVPUSH PRN (21:02)
[2020-01-08] MEDS ORDERED: MAG HYDROX/AL HYDROX/SIMETH 30 ML UNIT-DOSE CUP PO ONE (21:15)
[2020-01-08] MEDS ORDERED: ACETAMINOPHEN 1000 MG/100 ML VIAL (NON FORMULARY) IVPB PRN (21:57)
[2020-01-08] MEDS ORDERED: DEXAMETHASONE SOD PHOSPHATE 10 MG/1 ML VIAL IVPUSH ONE (23:45)
[2020-01-09] MEDS ORDERED: CEFAZOLIN 1 GM in DEXTROSE 5%-WATER - 50 ML IVPB SCH (02:22)
[2020-01-09] MEDS ORDERED: ceFAZolin SODIUM 1 GM VIAL ONE ×2 (02:31→07:51)
[2020-01-09] MEDS ORDERED: DEXTROSE 5%-WATER - 50 ML IVPB ONE ×2 (02:31→07:52)
[2020-01-09] MEDS: CEFAZOLIN 1 GM in DEXTROSE 5%-WATER - 50 ML IVPB SCH ×2 (02:32→08:49)
[2020-01-09 06:44] LABS: BASO % 0.1 % (0-2.0); HEMATOCRIT 38.7 % (32.4-45.2); HEMOGLOBIN 12.9 GM/dL (10.7-15.3); LYMPH % 7.3 % (8-40); MCH 31.1 pg (25.7-33.7); MCHC 33.3 g/dl (32.0-36.0); MEAN CELL VOLUME 93.3 fl (80-96); MEAN PLT VOLUME 9.7 fl (7.5-11.1); MONO % 4.6 % (3.8-10.2); PLATELET COUNT 198 K/MM3 (134-434); RBC 4.15 M/mm3 (3.60-5.2); RDW 14.1 % (11.6-15.6); WHITE BLOOD COUNT 13.4 K/mm3 (4.0-10.0)
[2020-01-09 07:13] LABS: ALBUMIN 3.4 g/dl (3.4-5.0); BLOOD UREA NITROGEN 7.7 mg/dL (7-18); CALCIUM 8.7 mg/dL (8.5-10.1); MAGNESIUM 1.9 mg/dL (1.8-2.4); POTASSIUM 4.3 mmol/L (3.5-5.1)
[2020-01-09 07:16] LABS: BILIRUBIN,TOTAL 0.3 mg/dL (0.2-1); CREATININE 0.6 mg/dL (0.55-1.3); PHOSPHOROUS 3.6 mg/dL (2.5-4.9); TOT PROT 6.4 g/dl (6.4-8.2)
[2020-01-09] MEDS: ONDANSETRON 4 MG/2 ML VIAL IVPUSH PRN (08:19)
[2020-01-09] MEDS ORDERED: TRIAMTERENE AND HCTZ - 37.5 MG/25 MG CAPSULE PO SCH (10:00)
[2020-01-09] MEDS ORDERED: CHOLECALCIFEROL (VIT D3) 1,000 UNIT (25 MCG) TABLET PO SCH ×2 (10:00)
[2020-01-09] MEDS ORDERED: THYROID 30 MG TABLET PO SCH (10:00)
--- NOTE | 2020-01-09 10:01 | OP ---
DATE OF OPERATION: 01/08/2020 SURGEON: Darnell Jang MD INDUSTRIAL ELECTRICIAN: Marek Jang MD PRE-OPERATIVE DIAGNOSIS: 1. C4-C5, C5-C6, C6-C7 intervertebral disk disorders with associated spondylotic: A. Myelopathy. B. Radiculopathy. 2. Severe C4-C7 cervical spinal stenosis with neurogenic claudication. 3. Cervical kyphosis/deformity. 4. Multi-level axial segmental instability cervical spine with associated myofascial pain complex and cervicothoracic enthesopathy. 5. Progressive neurological decline with gait imbalance/disorder, extremity weakness, and fall risk. POST-OPERATIVE DIAGNOSIS: 1. C4-C5, C5-C6, C6-C7 intervertebral disk disorders with associated spondylotic: A. Myelopathy. B. Radiculopathy. 2. Severe C4-C7 cervical spinal stenosis with neurogenic claudication. 3. Cervical kyphosis/deformity. 4. Multi-level axial segmental instability cervical spine with associated myofascial pain complex and cervicothoracic enthesopathy. 5. Progressive neurological decline with gait imbalance/disorder, extremity weakness, and fall risk. SURGICAL PROCEDURE: 1. C4-C5, C5-C6, C6-C7 discectomies and arthrodesis (43337, 82107 x 2). 2. C5, C6 corpectomies. (99516, 23867). 3. C4, C7 partial corpectomies (41974 x 2). 3. Insertion of biomechanical device C4-C7 (61978). 4. C4-C7 anterior instrumentation (93765). 5. Bone autograft (60369). 6. Bone allograft (57941). 7. Microsurgical dissection (05186). FINDINGS: Significant expansion of theca observed after C4-C7 decompression. Improved EMG's at the end of the case compared to at the beginning of the case. IMPLANTS: 1. Cage: Choice Spine [place] [id number]. 2. Plate: Precision Spine Simplicity 46mm. 3. Screws: 4 x 12x4mm. ANESTHESIOLOGIST: Igor Galan MD ANESTHESIA: General endotracheal tube anesthesia. POSITION: Supine. INCISION: Right oblique anterior. ESTIMATED BLOOD LOSS: 150cc. TRANSFUSIONS: 70cc Cell Saver. INTRAVENOUS FLUID: 2L crystalloid. SPECIMENS: C4-5, C5-C6, C7-C8 discs. DRAINS: None. COMPLICATIONS: None. URINE OUTPUT: See anesthesia record. BACTERIOLOGY: None. CLOSURE: 2-0 Vicryl and 3-0 Biosyn absorbable suture. INDICATIONS: The patient was indicated for a C4-C7 anterior cervical decompression, reconstruction, and instrumented fusion to prevent the progression of already worsening neurological decline. The patient was identified in the holding area by her armband. A long discussion was held with the patient regarding the risks, benefits and alternatives of the above-named procedure. The risks include, but are not limited to: pain, bleeding, infection, damage to surrounding structures (including nerves, blood vessels, skin, ligaments, tendons, and bone), dysphagia, dysphonia, nerve palsy, weakness, limp, wound complications, pseudarthrosis, failure of fusion, failure of hardware/implants/reduction, need for further surgery, blood clots, myocardial infarction, pulmonary embolism, cerebrovascular event, anesthesia complications, neurological injury, loss of function, and . Benefits as mentioned above. Alternatives include no surgery. All questions were answered. The patient understood and agreed to the procedure. Informed consent was obtained, witnessed and verified by hospital nursing staff. The patients anterior neck was marked. The patient was then seen by the anesthesia and nursing staff and then taken to the operating room. PROCEDURE: The patient was brought into the operating room and transferred to the OR table, and secured with a safety strap. Consent and the operative site were again verified with the patient, the nursing team, the surgical team, and the anesthesiology team. Anesthesia, IV antibiotics, TXA, and 10mg IV Decadron were then administered without complication. A time out was done, led by me the attending surgeon. An indwelling Contreras catheter was successfully inserted by the nursing team. The intra-operative neural monitoring team then set up for the case. Pre-positional baseline SSEP, MEP, & EEG readings were recorded. The patient was positioned in the supine position with arms tucked and placed under gentle traction using tape over her shoulders. All bony prominences were very well padded. A bump was placed beneath the scapulae to facilitate extension of the patients neck. A C-arm fluoroscopy unit was positioned perpendicularly to the table and maintained at the level of the head, except when needed. The intended surgical level was confirmed using fluoroscopy, and a deep neck crease in the lines of Shiela at this level was targeted for incision. Intra-operative neural monitoring revealed no change between pre-positional and post-positional readings. The operative site was then prepped and in the standard sterile fashion using betadine prep and scrub, wiped off with alcohol, Duraprep applied, and then free draped. Pre-operative imaging was available for intra-operative evaluation. Time-out was again done, and the case began. A standard, Mcfarlane-May approach to the cervical spine was utilized. An oblique anterior incision was made on the right side of the patients neck in the lines of Shiela in standard fashion. Numerous distended branches of the anterior jugular vein were encountered, tied off, and cauterized in order to continue the exposure. Dissection was carried through the investing layer of fascia and finger palpation was used to create a plane lateral to the strap muscles between the carotid sheath and the viscera. Next, the esophagus and trachea were visualized as was the carotid sheath. Hand-held retractors were used to retract these structures safely out of the way, allowing direct access to the anterior cervical spine. The prevertebral fascia overlying the anterior cervical spine was then split using peanut swabs. An 18-gauge spinal needle was bent and used to localize the indicated surgical level under fluoroscopy. Next, the medial borders of the Longus Coli musculature were gently released over the anterolateral borders of the vertebral bodies and disc spaces using monopolar electrocautery. A self-retaining retractor system was used with the teeth of the blades retracting the belly of the longus coli muscles, and with the retractors themselves safely retracting the carotid sheath laterally and viscera medially. One 12mm Warren pin was then placed into the center of the vertebral bodies of C4 and C7. The Warren pin placement was confirmed via fluorscopy. A Warren pin distractor system was applied with no distraction at this stage. Additionally, the distractor barrels served as superior and inferior soft tissue retractors. The microscope was then introduced. Using monopolar electrocautery, the annulus of the C4-C5, C5-C6, and C6-C7 discs were incised. The disc was morselized using a curette and excised using a pituitary rongeur. This completed the C4-C5, C5-C6, and C6-C7 discectomies. A Matchstick ramon-tipped gagandeep was then used to cut a trough onto the left and right-hand side of the C5 and C6 vertebral bodies just medial to the waist of each vertebral body, and thus medial to the plane of the vertebral arteries. The C4-C5, C5-C6, and C6-C7 disc spaces were then also burred out. The remaining bone was delivered with a Leksell rongeur. All of this bone was saved for grafting purposes as an autologous graft. A 4mm ball-shaped, ramon-tipped gagandeep was utilized to complete the debulking of the residual bone. This completed the C5 and C6 corpectomies. An undercutting partial corpectomies were performed at C4 and at C7 using a gagandeep and Kerrison rongeurs. Corpectomies (at C5 and C6) and partial corpectomies (at C4 and C7) were performed in order to be able to decompress stenosis material (posterior longitudinal ligament complex) posterior to the vertebral bodies that would otherwise be inaccessible. This material had to be decompressed in order to relieve the severe spinal stenosis from C4-C7 that otherwise would not have been removed simply by performing discectomies at C4-C5, C5-C6, and C6-C7. A small Warwick type elevator was utilized to ensure that all PLL complex was free from adhesion to the theca from C4-C7. There was no evidence of OPLL. The visible posterior longitudinal ligament was released and excised utilizing Kerrison rongeur upcuts. This ensured complete decompression proximally and distally from C4-C7. Immediately, the theca expanded anteriorly into the decompressed space and evidence of chronic stenosis was evidence by its residual hourglass configuration. An angled ball-tipped probe was gently used to ensure that all foramina bilaterally from C4-C7 were decompressed. Our decompression of the cervical spine was successfully achieved. Gentle distraction was applied to the Warren pins. Next, a Choice Spine [place] intervertebral cage was measured using calipers and osteotomes to fit the space created. The cage was filled with autologous bone derived from the corpectomies, along with allograft cancellous bone chips demineralized bone matrix putty allograft. The cage was then gently tapped into position. This completing the anterior column reconstruction and anterior arthrodesis of the cervical spine. The Warren pins were removed and the holes from the Warren pins at C4 and C7 were plugged with bone wax. A Precision Spine Slimplicity plate was sized and 12mm screws were used to provide solid fixation of the plate to the anterior C4 and C7 vertebral bodies. Fluoroscopic images in the AP and lateral plane showed implants to be in good position and with good overall alignment of the cervical spine. The screws were then locked using the plate-screw locking mechanism. The anesthesiologist then performed a Valsalva maneuver up to 40mmHg. There was no evidence of dural defect, cerebrospinal fluid leak, or uncontrollable bleeding. Throughout the case, copious irrigation was performed, and hemostasis was assured. The decision was made not to place a drain. The wound was closed primarily using 2-0 Vicryl and 3-0 Biosyn sutures. A sterile compressive dressing was applied. Sponge and needle counts were correct at the end of the case, and I, the attending surgeon, was present and scrubbed throughout the case. A [place]-J hard cervical collar was then applied. The patient was then extubated by the anesthesia staff without incident or complications and was then transferred to the recovery room in stable condition having tolerated the procedure well. OVERALL COMMENTS: Overall the case went well. Intra-operative neural monitoring readings improved from baseline at the end of the case. MD ALAINA Dutton/[id number] MTDD
[2020-01-09] MEDS ORDERED: PT OWN MED DRAWER 7, Y5N ONE (10:53)
--- NOTE | 2020-01-09 10:53 | PN ---
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
--- NOTE | 2020-01-09 11:51 | PN ---
Progress Note (short form) - Note Progress Note: 49F s/p C5, C6 corpectomies, C4-C7 anterior cervical decompression, cage reconstruction, and instrumented fusion POD #1. Pain well controlled. No acute events overnight. Pt. denies overnight history of headaches, chest pain, shortness of breath, nausea, vomiting, chills, & sweats. (+) Voiding; (+) Flatus; (-) BM. (-) Dysphonia/hoarseness. Tolerating puree diet; swallowing mechanism intact. All labs and vitals reviewed. PE: AAO x 3, NAD. C-Spine: Dressing C/D/I. Neck soft, supple, no swelling. [place]-J c-collar intat & in place. B/L UE & LE M: Intact, at least 3/5. B/L UE & LE S: C5-T1, L2-S1 2/2. 49F s/p C5, C6 corpectomies, C4-C7 anterior cervical decompression, cage reconstruction, and instrumented fusion POD #1. -Pain medication: NO NSAID's. -Maintain head of bed 30-45 degrees. -DVT PPx: -Mechanical only: MANINDER's, SCD's. -Incentive spirometry. -PT/OT/Rehab, OOB. -PWB B/L UE: <5lbs. -WBAT B/L LE. -Hard c-collar at all times. -Advance diet as tolerated. -f/u c-spine x-rays in c-collar. -Keep dressing clean & dry. -No heavy lifting (>5 lbs), bending or twisting x 6 months post op. -B/L UE & LE NV checks. -Discharge planning: home today; f/u [facility] [place] office next week; call for appointment; . Marek Jang MD (Orthopaedic Surgery).
--- NOTE | 2020-01-09 13:58 | PN ---
Physical Exam: SUBJECTIVE: Patient seen and examined. Pt stated that pain improved compared to yesterday. Denied bowel movements or passing flatus since surgery. OBJECTIVE: Vital Signs Period Temp Pulse Resp BP Sys/Terry Pulse Ox Last 24 Hr 98 F-98.5 F 51-85 12-94 104-128/63-83 96-100 GENERAL: The patient is awake, alert, and fully oriented, in no acute distress. HEENT: NCAT, EOMI. NECK: Surgical site bandaged and clean. No serosanguinous drainage. LUNGS: Breath sounds equal, clear to auscultation bilaterally HEART: Regular rate and rhythm, S1, S2 without murmur ABDOMEN: Soft, hypoactive bowel sounds. SKIN: Warm, dry, surgical site on anterior neck. Laboratory Last Values WBC 13.4 K/mm3 (4.0-10.0) H 01/09/20 05:40 RBC 4.15 M/mm3 (3.60-5.2) 01/09/20 05:40 Hgb 12.9 GM/dL (10.7-15.3) 01/09/20 05:40 Hct 38.7 % (32.4-45.2) 01/09/20 05:40 MCV 93.3 fl (80-96) 01/09/20 05:40 MCH 31.1 pg (25.7-33.7) 01/09/20 05:40 MCHC 33.3 g/dl (32.0-36.0) 01/09/20 05:40 RDW 14.1 % (11.6-15.6) 01/09/20 05:40 Plt Count 198 K/MM3 (134-434) 01/09/20 05:40 MPV 9.7 fl (7.5-11.1) 01/09/20 05:40 Absolute Neuts (auto) 11.8 K/mm3 (1.5-8.0) H 01/09/20 05:40 Neutrophils % 88.0 % (42.8-82.8) H D 01/09/20 05:40 Lymphocytes % 7.3 % (8-40) L D 01/09/20 05:40 Monocytes % 4.6 % (3.8-10.2) 01/09/20 05:40 Eosinophils % 0.0 % (0-4.5) D 01/09/20 05:40 Basophils % 0.1 % (0-2.0) 01/09/20 05:40 Nucleated RBC % 0 % (0-0) 01/09/20 05:40 Sodium 140 mmol/L (136-145) 01/09/20 05:40 Potassium 4.3 mmol/L (3.5-5.1) 01/09/20 05:40 Chloride 103 mmol/L (98-107) 01/09/20 05:40 Carbon Dioxide 32 mmol/L (21-32) 01/09/20 05:40 Anion Gap 5 MMOL/L (8-16) L 01/09/20 05:40 BUN 7.7 mg/dL (7-18) 01/09/20 05:40 Creatinine 0.6 mg/dL (0.55-1.3) 01/09/20 05:40 Est GFR (CKD-EPI)AfAm 124.92 01/09/20 05:40 Est GFR (CKD-EPI)NonAf 107.78 01/09/20 05:40 Random Glucose 156 mg/dL (74-106) H 01/09/20 05:40 Calcium 8.7 mg/dL (8.5-10.1) 01/09/20 05:40 Phosphorus 3.6 mg/dL (2.5-4.9) 01/09/20 05:40 Magnesium 1.9 mg/dL (1.8-2.4) 01/09/20 05:40 Total Bilirubin 0.3 mg/dL (0.2-1) 01/09/20 05:40 AST 19 U/L (15-37) 01/09/20 05:40 ALT 21 U/L (13-61) 01/09/20 05:40 Alkaline Phosphatase 46 U/L (45-117) 01/09/20 05:40 Total Protein 6.4 g/dl (6.4-8.2) 01/09/20 05:40 Albumin 3.4 g/dl (3.4-5.0) 01/09/20 05:40 Blood Type O POSITIVE 01/08/20 06:09 Antibody Screen Negative 01/08/20 06:09 Active Medications Acetaminophen (Ofirmev Injection -) 1,000 mg IVPB Q6H PRN PRN Reason: PAIN LEVEL 1-10 Stop: 01/09/20 21:57 Last Admin: 01/09/20 08:47 Dose: 1,000 mg Documented by: Cholecalciferol (Vitamin D3 -) 6,000 unit PO DAILY [facility] Last Admin: 01/09/20 10:54 Dose: 6,000 unit Documented by: Fentanyl (Sublimaze Injection -) 50 mcg IVPUSH [id number] PRN PRN Reason: PAIN-PACU ORDER X 4 DOSES ONLY Hydromorphone HCl (Hydromorphone 10 Mg/50 Ml-Ns) 10 mg RADIO OPERATOR RADIO OPERATOR TERRENCE; Protocol Stop: 01/09/20 13:59 Lactated Ringer's (Lactated Ringers Solution) 1,000 mls @ 125 mls/hr IV ASDIR [facility] Last Admin: 01/09/20 08:00 Dose: 125 mls/hr Documented by: Promethazine HCl (Phenergan Injection -) 12.5 mg IVPB Q6H PRN PRN Reason: NAUSEA-FOR RESCUE AFTER 15 MIN Thyroid ([place] Thyroid -) 15 mg PO DAILY [facility] Last Admin: 01/09/20 11:20 Dose: 15 mg Documented by: Triamterene/HCTZ (Dyazide 25/37.5mg) 1 cap PO DAILY [facility] Last Admin: 01/09/20 10:54 Dose: 1 cap Documented by: ASSESSMENT/PLAN: Pt is a 49 y/o female with HTN and hypothyroidism who presents for post-op monitoring following POD #1 C5, C6 corpectomies, C4-C5, C5-C6, C6-C7 discectomies and anterior cervical decompression, C4-C7 anterior cervical cage reconstruction with instrumented spinal fusion. Pt stated her pain improved compared to yesterday. Spoke to Dr. Jang on rounds, who recommended discharge in the afternoon. #neuro/MSK -grossly intact -monitor for signs of stridor, low threshold for steroid use -Early ambulation (PT) #cardio -hemodynamically stable -continue home triamterene/HCTZ #pulm -Saturation in low 90s on 2L NC -incentive spirometer #endo -continue home [place] Thyroid #ID -cefazolin 1g x3 doses post-op #GI -advance diet as tolerated DVT Ppx SCDs TEDs FEN LR 125mL/hr monitor labs puree diet dispo Pt is stable to transfer to home. Follow up with Dr. Jang's office next week. ATTENDING PHYSICIAN STATEMENT I saw and evaluated the patient. I reviewed the resident's note and discussed the case with the resident. I agree with the resident's findings and plan as documented. SUBJECTIVE: OBJECTIVE: ASSESSMENT AND PLAN:
--- NOTE | 2020-01-09 14:34 | PN ---
Teaching Attending Note Name of Resident: Pearl Varela ATTENDING PHYSICIAN STATEMENT I saw and evaluated the patient. I reviewed the resident's note and discussed the case with the resident. I agree with the resident's findings and plan as documented. SUBJECTIVE: Patient seen and examined in the ICU. Awake and alert. Brace intact. Sternal discomfort. No acute events overnight. Intake & Output 01/06/20 01/07/20 01/08/20 01/09/20 23:59 23:59 23:59 23:59 Intake Total 2960 2050 Output Total 1350 1700 Balance 1610 350 Last Vital Signs Temp Pulse Resp BP Pulse Ox 98.3 F 81 20 110/77 97 01/09/20 10:00 01/09/20 12:00 01/09/20 12:00 01/09/20 12:00 01/09/20 08:37 Active Medications Acetaminophen (Ofirmev Injection -) 1,000 mg IVPB Q6H PRN PRN Reason: PAIN LEVEL 1-10 Stop: 01/09/20 21:57 Last Admin: 01/09/20 08:47 Dose: 1,000 mg Documented by: Cholecalciferol (Vitamin D3 -) 6,000 unit PO DAILY [facility] Last Admin: 01/09/20 10:54 Dose: 6,000 unit Documented by: Fentanyl (Sublimaze Injection -) 50 mcg IVPUSH [id number] PRN PRN Reason: PAIN-PACU ORDER X 4 DOSES ONLY Lactated Ringer's (Lactated Ringers Solution) 1,000 mls @ 125 mls/hr IV ASDIR [facility] Last Admin: 01/09/20 08:00 Dose: 125 mls/hr Documented by: Promethazine HCl (Phenergan Injection -) 12.5 mg IVPB Q6H PRN PRN Reason: NAUSEA-FOR RESCUE AFTER 15 MIN Thyroid ([place] Thyroid -) 15 mg PO DAILY [facility] Last Admin: 01/09/20 11:20 Dose: 15 mg Documented by: Triamterene/HCTZ (Dyazide 25/37.5mg) 1 cap PO DAILY [facility] Last Admin: 01/09/20 10:54 Dose: 1 cap Documented by: GENERAL: Awake, alert, and fully oriented, in no acute distress. HEAD: Normal with no signs of trauma. EYES: Pupils equal, round and reactive to light, extraocular movements intact, conjunctiva clear. EARS, NOSE, THROAT: Ears normal, nares patent, moist mucous membranes. Hoarse voice. NECK: Cervical collar present with anterior neck dressing dry and intact, no fluctuance or induration of neck, tender to palpation. LUNGS: Clear to auscultation bilaterally in anterior and lateral dean. No stridor. No wheezes, and no crackles. HEART: Regular rate and rhythm, no murmur. ABDOMEN: Soft, nontender, not distended, normoactive bowel sounds. MUSCULOSKELETAL: Normal range of motion at all joints. UPPER EXTREMITIES: Warm, well-perfused. No peripheral edema. LOWER EXTREMITIES: Warm, well-perfused. No peripheral edema. NEUROLOGICAL: Non-focal PSYCHIATRIC: Cooperative. Good eye contact. Appropriate mood and affect. SKIN: Warm, dry, normal turgor. Laboratory Results - last 24 hr 01/09/20 01/09/20 05:40 05:40 WBC 13.4 H RBC 4.15 Hgb 12.9 Hct 38.7 MCV 93.3 MCH 31.1 MCHC 33.3 RDW 14.1 Plt Count 198 MPV 9.7 Absolute Neuts (auto) 11.8 H Neutrophils % 88.0 H D Lymphocytes % 7.3 L D Monocytes % 4.6 Eosinophils % 0.0 D Basophils % 0.1 Nucleated RBC % 0 Sodium 140 Potassium 4.3 Chloride 103 Carbon Dioxide 32 Anion Gap 5 L BUN 7.7 Creatinine 0.6 Est GFR (CKD-EPI)AfAm 124.92 Est GFR (CKD-EPI)NonAf 107.78 Random Glucose 156 H Calcium 8.7 Phosphorus 3.6 Magnesium 1.9 Total Bilirubin 0.3 AST 19 ALT 21 Alkaline Phosphatase 46 Total Protein 6.4 Albumin 3.4 ASSESSMENT/PLAN: POD #1 : C5/C6 corpectomies, C4-C5, C5-C6, C6-C7 discectomies and anterior cervical decompression, C4-C7 anterior cervical cage reconstruction with instrumented spinal fusion. HTN Hypothyroidism Pain control Supplemental O2 as needed Incentive Spirometry VTE prophylaxis No NSAIDS PO as tolerated PT & activity per Ortho Dr Sullivan
--- NOTE | 2020-01-09 14:56 | DS ---
Physical Exam: SUBJECTIVE: Patient seen and examined. Stated that pain improved. Per nurse, pt walked to the bathroom with assistance. OBJECTIVE: Vital Signs Period Temp Pulse Resp BP Sys/Terry Pulse Ox Last 24 Hr 98 F-98.3 F 51-85 12-94 104-128/63-83 96-100 PHYSICAL EXAM GENERAL: The patient is awake, alert, and fully oriented, in no acute distress. HEENT: NCAT, EOMI. NECK: Surgical site bandaged and dry, no serosanguinous fluid draining. LUNGS: Breath sounds equal, clear to auscultation bilaterally, no wheezes HEART: Regular rate and rhythm, S1, S2 without murmur SKIN: Warm, dry, surgical site bandaged on anterior neck. Laboratory Last Values WBC 13.4 K/mm3 (4.0-10.0) H 01/09/20 05:40 RBC 4.15 M/mm3 (3.60-5.2) 01/09/20 05:40 Hgb 12.9 GM/dL (10.7-15.3) 01/09/20 05:40 Hct 38.7 % (32.4-45.2) 01/09/20 05:40 MCV 93.3 fl (80-96) 01/09/20 05:40 MCH 31.1 pg (25.7-33.7) 01/09/20 05:40 MCHC 33.3 g/dl (32.0-36.0) 01/09/20 05:40 RDW 14.1 % (11.6-15.6) 01/09/20 05:40 Plt Count 198 K/MM3 (134-434) 01/09/20 05:40 MPV 9.7 fl (7.5-11.1) 01/09/20 05:40 Absolute Neuts (auto) 11.8 K/mm3 (1.5-8.0) H 01/09/20 05:40 Neutrophils % 88.0 % (42.8-82.8) H D 01/09/20 05:40 Lymphocytes % 7.3 % (8-40) L D 01/09/20 05:40 Monocytes % 4.6 % (3.8-10.2) 01/09/20 05:40 Eosinophils % 0.0 % (0-4.5) D 01/09/20 05:40 Basophils % 0.1 % (0-2.0) 01/09/20 05:40 Nucleated RBC % 0 % (0-0) 01/09/20 05:40 Sodium 140 mmol/L (136-145) 01/09/20 05:40 Potassium 4.3 mmol/L (3.5-5.1) 01/09/20 05:40 Chloride 103 mmol/L (98-107) 01/09/20 05:40 Carbon Dioxide 32 mmol/L (21-32) 01/09/20 05:40 Anion Gap 5 MMOL/L (8-16) L 01/09/20 05:40 BUN 7.7 mg/dL (7-18) 01/09/20 05:40 Creatinine 0.6 mg/dL (0.55-1.3) 01/09/20 05:40 Est GFR (CKD-EPI)AfAm 124.92 01/09/20 05:40 Est GFR (CKD-EPI)NonAf 107.78 01/09/20 05:40 Random Glucose 156 mg/dL (74-106) H 01/09/20 05:40 Calcium 8.7 mg/dL (8.5-10.1) 01/09/20 05:40 Phosphorus 3.6 mg/dL (2.5-4.9) 01/09/20 05:40 Magnesium 1.9 mg/dL (1.8-2.4) 01/09/20 05:40 Total Bilirubin 0.3 mg/dL (0.2-1) 01/09/20 05:40 AST 19 U/L (15-37) 01/09/20 05:40 ALT 21 U/L (13-61) 01/09/20 05:40 Alkaline Phosphatase 46 U/L (45-117) 01/09/20 05:40 Total Protein 6.4 g/dl (6.4-8.2) 01/09/20 05:40 Albumin 3.4 g/dl (3.4-5.0) 01/09/20 05:40 Blood Type O POSITIVE 01/08/20 06:09 Antibody Screen Negative 01/08/20 06:09 Active Medications Acetaminophen (Ofirmev Injection -) 1,000 mg IVPB Q6H PRN PRN Reason: PAIN LEVEL 1-10 Stop: 01/09/20 21:57 Last Admin: 01/09/20 08:47 Dose: 1,000 mg Documented by: Cholecalciferol (Vitamin D3 -) 6,000 unit PO DAILY [facility] Last Admin: 01/09/20 10:54 Dose: 6,000 unit Documented by: Fentanyl (Sublimaze Injection -) 50 mcg IVPUSH [id number] PRN PRN Reason: PAIN-PACU ORDER X 4 DOSES ONLY Lactated Ringer's (Lactated Ringers Solution) 1,000 mls @ 125 mls/hr IV ASDIR [facility] Last Admin: 01/09/20 08:00 Dose: 125 mls/hr Documented by: Promethazine HCl (Phenergan Injection -) 12.5 mg IVPB Q6H PRN PRN Reason: NAUSEA-FOR RESCUE AFTER 15 MIN Thyroid (Letart Thyroid -) 15 mg PO DAILY [facility] Last Admin: 01/09/20 11:20 Dose: 15 mg Documented by: Triamterene/HCTZ (Dyazide 25/37.5mg) 1 cap PO DAILY [facility] Last Admin: 01/09/20 10:54 Dose: 1 cap Documented by: HOSPITAL COURSE: This is a 49 yo female with PMH HTN and hypothyroidism who was admitted for C5, C6 corpectomies, C4-C5, C5-C6, C6-C7 discectomies and anterior cervical decompression, C4-C7 anterior cervical cage reconstruction with instrumented spinal fusion with Dr. Jagn. She is post-op day 1. She stated that her pain improved. Pt was able to ambulate to the bathroom with assistance. No post- operative complications noted. Pt is hemodynamically stable. She will follow up with Dr. Jang in his office next week. She is optimized for discharge home. Date of Admission:01/08/20 Date of Discharge: 01/09/20 Minutes to complete discharge: 38 Discharge Summary Problems reviewed: Yes Reason For Visit: OTHER CERVICAL DISC DEGENERATION AT C4-C5 LEVEL Condition: Stable - Instructions Diet, Activity, Other Instructions: You were admitted to the hospital for cervical spine surgery by DR. Jang on 01/08/20. Admitted to the ICU for monitoring. Following the surgery, you were monitored in the ICU without any post-surgical complications. You are stable to go home with a home health aide, registered nurse and physical therapy services. Medication changes: Continue your home medications. You may take Tylenol 650mg every 6 hours as needed for pain. Avoid non-steroidal anti-inflammatory drugs (NSAIDs) such as Ibuprofen, Motrin, etc. Activity: Follow up with physical therapy/occupational therapy/rehabilitation and follow their recommendations. Do not lift more than 5 lbs. Wear your cervical collar at all times. Use your incentive spirometer. Emergency symptoms: Proceed to the nearest Emergency Department if you experience, fever, chest pain, shortness of breath, or bleeding. Call Dr. Jang's office or go to Emergency Department if you experience pain that is not relieved by Tylenol. Follow up: Follow up with [facility] [place] office next week. Call for appointment; . Referrals: Darnell Jang MD [Staff Physician] - Disposition: HOME - Home Medications Comprehensive Discharge Medication List: Ambulatory Orders Thyroid,Pork [Letart Thyroid] 15 mg PO DAILY 08/24/19 Triamterene/Hydrochlorothiazid [Dyazide 37.5-25 Capsule] 1 each PO DAILY 08/24/19 Cholecalciferol (Vitamin D3) [Vitamin D3] 6,000 unit PO DAILY 01/05/20 Acetaminophen [Tylenol] 650 mg PO Q6H #28 capsule 01/09/20 This patient is new to me today: Yes Date on this admission: 01/09/20 Emergency Visit: No Critical Care patient: Yes Total Critical Care Time (in minutes): 38 Critical Care Statement: The care of this patient involved high complexity decision making to prevent further life threatening deterioration of the patient's condition and/or to evaluate & treat vital organ system(s) failure or risk of failure. - Discharge Referral Referred to [facility] No ATTENDING PHYSICIAN STATEMENT I saw and evaluated the patient. I reviewed the resident's note and discussed the case with the resident. I agree with the resident's findings and plan as documented. SUBJECTIVE: OBJECTIVE: ASSESSMENT AND PLAN:
--- NOTE | 2020-01-09 15:59 | DS ---
Physical Examination Vital Signs: Vital Signs Temperature 98.3 F 01/09/20 10:00 Pulse Rate 81 01/09/20 12:00 Respiratory Rate 20 01/09/20 12:00 Blood Pressure 110/77 01/09/20 12:00 O2 Sat by Pulse Oximetry (%) 97 01/09/20 08:37 Findings/Remarks: Operative Date: 01/08/20 Pre-Operative Diagnosis: 1. C4-C5, C5-C6, C6-C7 intervertebral disc disorders with radiculopathy. 2. Severe C4-C7 spinal stenosis with myelopathy. 3. C4-C7 axial instability, kyphosis, myofascial pain complex and cervical enthesopathy Operation: 1. C5, C6 corpectomies. 2. C4-5, C5-C6, C6-C7 discectomies and anterior cervical decompression. 3. C4-C7 anterior cervical cage reconstruction. 4. C4-C7 instrumented spinal fusion. 5. Bone autograft. 6. Bone allograft Findings: Improved EMG's at end of case Implants: [employer] [place] Cage: 40mm [id number]. [employer] [place] Plate: 46mm. Screws: 12x4.0 x 4 Screws Post-Operative Diagnosis: Same as Pre-op Surgeon: Darnell Jang Feels well, walked around in ICU with 1 person assist. Wants to go home Constitutional: Yes: Well Nourished, No Distress, Calm Neck: Yes: Decreased ROM Cardiovascular: Yes: Regular Rate and Rhythm Respiratory: Yes: Regular, CTA Bilaterally Gastrointestinal: Yes: Normal Bowel Sounds, Soft Renal/: Yes: WNL Musculoskeletal: Yes: WNL Extremities: Yes: WNL Edema: No Peripheral Pulses WNL: Yes Neurological: Yes: Alert, Oriented Psychiatric: Yes: Alert, Oriented Labs: CBC, BMP 01/09/20 05:40 01/09/20 05:40 Discharge Summary Problems reviewed: Yes Reason For Visit: OTHER CERVICAL DISC DEGENERATION AT C4-C5 LEVEL Condition: Stable - Instructions Diet, Activity, Other Instructions: You were admitted to the hospital for cervical spine surgery by DR. Jang on 01/08/20. Admitted to the ICU for monitoring. Following the surgery, you were monitored in the ICU without any post-surgical complications. You are stable to go home with a home health aide, registered nurse and physical therapy services. Medication changes: Continue your home medications. You may take Tylenol 650mg every 6 hours as needed for pain. Avoid non-steroidal anti-inflammatory drugs (NSAIDs) such as Ibuprofen, Motrin, etc. Activity: Follow up with physical therapy/occupational therapy/rehabilitation and follow their recommendations. Do not lift more than 5 lbs. Wear your cervical collar at all times. Use your incentive spirometer. Emergency symptoms: Proceed to the nearest Emergency Department if you experience, fever, chest pa in, shortness of breath, or bleeding. Call Dr. Jang's office or go to Emergency Department if you experience pain that is not relieved by Tylenol. Follow up: Follow up with [facility] [place] office next week. Call for appointment; . Referrals: Darnell Jang MD [Staff Physician] - Disposition: VNS/HOME HEALTH CARE - Home Medications Comprehensive Discharge Medication List: Ambulatory Orders Thyroid,Pork [[place] Thyroid] 15 mg PO DAILY 08/24/19 Triamterene/Hydrochlorothiazid [Dyazide 37.5-25 Capsule] 1 each PO DAILY 08/24/19 Cholecalciferol (Vitamin D3) [Vitamin D3] 6,000 unit PO DAILY 01/05/20 Acetaminophen W/ Codeine #3 [Tylenol # 3 -] 1 tab PO Q6H PRN #20 tablet MDD 4 01/09/20 Acetaminophen [Tylenol] 650 mg PO Q6H #28 capsule 01/09/20 Guaifenesin [Mucinex] 1,200 mg PO BID #20 tab.er.12h 01/09/20 Prescription Drug Monitoring Program (I-STOP) results: I-STOP reviewed and no issues identified
[2020-01-09 16:01] VITALS: TEMP 98.5
--- NOTE | 2020-01-09 16:42 | PATH ---
Surgical Pathology Report Patient Name: ERNESTO DRAKE [facility]. Rec. #: [id number] /Age/Gender: 1970 (Age: 49) / F Account: [id number] Location: [facility] Taken: 01/08/2020 Received: 01/08/2020 Reported: 01/09/2020 Physicians: Darnell Jang M.D. Specimen(s) Received C-5 DISC Clinical History Other cervical disc degeneration at C4-C5 level Final Diagnosis C5 DISC, C5-C6 CORPECTOMY, C4-C7 ANTERIOR CERVICAL DECOMPRESSION, RECONSTRUCTION, INSTRUMENTED FUSION WITH BONE GRAFT: BENIGN INTERVERTEBRAL DISC TISSUE AND BONE. Electronically Signed Leeann Masters M.D. Gross Description Received fresh labeled "C5 disc," is a 1.8 x 1.5 x 0.3 cm aggregate of arguello-red fragments of fibrocartilaginous tissue. The specimen is entirely submitted in one cassette. /01/08/2020 saudi/01/08/2020
[2020-01-09] MEDS ORDERED: PCA PUMP NR ONE (16:47)
[2020-01-09 17:03] VITALS: BP 115/70; PULSE 78
== END 2020-01-09 17:00 | disposition home or self-care (01) | DRG 472 ==
LOC: J2C 04:44 → JICU 15:55
PROVIDERS: ADMIT Family Medicine; ATTEND Family Medicine
PROC: 0RB30ZZ Excision of Cervical Vertebral Disc, Open Approach (ICD-10-PCS; 2020-01-08)
PROC: 00NW0ZZ Release Cervical Spinal Cord, Open Approach (ICD-10-PCS; 2020-01-08)
PROC: 01N10ZZ Release Cervical Nerve, Open Approach (ICD-10-PCS; 2020-01-08)
PROC: B01BZZZ Fluoroscopy of Spinal Cord (ICD-10-PCS; 2020-01-08)
PROC: 4A11X4G Monitoring of Peripheral Nervous Electrical Activity, Intraoperative, External Approach (ICD-10-PCS; 2020-01-08)
PROC: 0RG20A0 Fusion of 2 or more Cervical Vertebral Joints with Interbody Fusion Device, Anterior Approach, Anterior Column, Open Approach (ICD-10-PCS; principal; 2020-01-08 08:00)
DX: M48.02 Spinal stenosis, cervical region (principal); M50.01 Cervical disc disorder with myelopathy, high cervical region; M47.12 Other spondylosis with myelopathy, cervical region; M40.292 Other kyphosis, cervical region; M50.11 Cervical disc disorder with radiculopathy, high cervical region; R26.89 Other abnormalities of gait and mobility; M47.22 Other spondylosis with radiculopathy, cervical region; M79.18 Myalgia, other site
CPT/HCPCS: 36415; 72050-TC-FY; 76000-TC-FY; 80053; 83735; 84100; 85025; 86850; 86891; 86900; 86901; 88304-TC; 94760; 97116-GP; 97163-GP; J0131; J1100; J1644

== ENCOUNTER 2021-08-13 18:30 | Emergency (ER) | payer OTHER ==
[2021-08-13 18:38] VITALS: BP 123/67; PULSE 70; TEMP 98.6; BMI 25.7
[2021-08-13] MEDS ORDERED: PANTOPRAZOLE SODIUM 40 MG VIAL IVPB ONE (20:17)
[2021-08-13] MEDS ORDERED: ACETAMINOPHEN 1000 MG/100 ML BAG IVPB ONE (20:18)
[2021-08-13] MEDS ORDERED: ACETAMINOPHEN INJECTION 100 ML IVPB ONE (20:24)
[2021-08-13] MEDS ORDERED: PANTOPRAZOLE SODIUM 40 MG VIAL ONE (20:24)
== END 2021-08-13 21:12 | disposition home or self-care (01) ==
LOC: FER 18:30
PROC: 3E0333Z Introduction of Anti-inflammatory into Peripheral Vein, Percutaneous Approach (ICD-10-PCS; principal; 2021-08-13)
PROC: 3E033GC Introduction of Other Therapeutic Substance into Peripheral Vein, Percutaneous Approach (ICD-10-PCS; 2021-08-13)
DX: K21.9 Gastro-esophageal reflux disease without esophagitis (principal); G43.909 Migraine, unspecified, not intractable, without status migrainosus
CPT/HCPCS: 99284-25

== ENCOUNTER 2022-03-30 13:52 | Emergency (ER) | payer OTHER ==
[2022-03-30 14:15] VITALS: BP 127/78; PULSE 114; RESP 20; TEMP 102.5; BMI 25.7
[2022-03-30] MEDS ORDERED: ACETAMINOPHEN 500 MG TABLET (FP) PO ONE (14:50)
[2022-03-30] MEDS ORDERED: SODIUM CHLORIDE 1,000 ML IV STA (14:50)
[2022-03-30] MEDS ORDERED: ONDANSETRON 4 MG/2 ML VIAL IVPUSH ONE (15:26)
[2022-03-30] MEDS ORDERED: ONDANSETRON 4 MG/2 ML VIAL ONE (15:28)
[2022-03-30] MEDS ORDERED: ACETAMINOPHEN 1000 MG/100 ML BAG IVPB ONE (15:31)
[2022-03-30] MEDS ORDERED: ACETAMINOPHEN INJECTION 100 ML IVPB ONE (15:40)
[2022-03-30 16:16] LABS: EPI CELLS 20 /uL (0-25.1); HYALINE CASTS 4 /uL (0-3.1); URINE APPEARANCE CLEAR; URINE BACTERIA 83 /uL (0-1359); URINE BILIRUBIN 1+ (NEGATIVE); URINE COLOR DK YELLOW; URINE GLUCOSE (UA) NEGATIVE (NEGATIVE); URINE KETONE 1+ (NEGATIVE); URINE LEUK ESTERASE NEGATIVE (NEGATIVE); URINE NITRITE NEGATIVE (NEGATIVE); URINE PROTEIN 1+ (NEGATIVE); URINE RBC 72 /uL (0-23.9); URINE UROBILINOGEN 4.0 E.U/dl mg/dL (0.2-1.0); URINE WBC 14 /uL (0-25.8)
[2022-03-30 16:25] LABS: BASO % 0.7 % (0-2.0); EOS % 0.1 % (0-4.5); HEMATOCRIT 40.5 % (32.4-45.2); HEMOGLOBIN 13.6 GM/dL (10.7-15.3); LYMPH % 13.3 % (8-40); MCH 30.6 pg (25.7-33.7); MCHC 33.5 g/dl (32.0-36.0); MEAN CELL VOLUME 91.2 fl (80-96); MEAN PLT VOLUME 8.7 fl (7.5-11.1); MONO % 8.7 % (3.8-10.2); NEUT % 77.2 % (42.8-82.8); PLATELET COUNT 253 10^3/uL (134-434); RBC 4.44 M/mm3 (3.60-5.2); RDW 14.3 % (11.6-15.6); WHITE BLOOD COUNT 10.8 K/mm3 (4.0-10.0)
[2022-03-30 16:30] LABS: HCG,QUALITATIVE URINE Negative
[2022-03-30 16:44] LABS: CALCIUM 9.3 mg/dL (8.5-10.1)
[2022-03-30 16:45] LABS: ALBUMIN 3.6 g/dl (3.4-5.0); BLOOD UREA NITROGEN 7.8 mg/dL (7-18)
[2022-03-30 16:48] LABS: CREATININE 0.7 mg/dL (0.55-1.3)
[2022-03-30 16:49] LABS: TOT PROT 7.4 g/dl (6.4-8.2)
[2022-03-30 16:51] LABS: BILIRUBIN,TOTAL 0.5 mg/dL (0.2-1)
== END 2022-03-30 19:12 | disposition home or self-care (01) ==
LOC: JER 13:52
PROC: 3E0333Z Introduction of Anti-inflammatory into Peripheral Vein, Percutaneous Approach (ICD-10-PCS; principal; 2022-03-30)
PROC: 3E033GC Introduction of Other Therapeutic Substance into Peripheral Vein, Percutaneous Approach (ICD-10-PCS; 2022-03-30)
PROC: 3E0337Z Introduction of Electrolytic and Water Balance Substance into Peripheral Vein, Percutaneous Approach (ICD-10-PCS; 2022-03-30)
DX: J18.9 Pneumonia, unspecified organism (principal)
CPT/HCPCS: 0241U-QW; 36415; 71046-TC-FY; 71101-TC-RT-FY; 71250-TC; 80053; 81003; 83605; 84703; 85025; 87040; 87086; 99285-25

== ENCOUNTER 2022-09-27 14:04 | Emergency (ER) | payer OTHER ==
[2022-09-27 14:12] VITALS: BP 133/95; PULSE 108; RESP 18; TEMP 98.6; BMI 26.7
[2022-09-27] MEDS ORDERED: KETOROLAC TROMETHAMINE 30 MG/1 ML VIAL IVPUSH ONE (14:28)
[2022-09-27] MEDS ORDERED: KETOROLAC TROMETHAMINE 15 MG/ML VIAL ONE (14:33)
[2022-09-27 15:17] LABS: ALBUMIN 4.8 g/dl (3.4-5.0); BILIRUBIN,TOTAL 0.6 mg/dl (0.2-1); CALCIUM 9.8 mg/dl (8.5-10); CREATININE 0.6 mg/dl (0.55-1.3); TOT PROT 7.6 g/dl (6.4-8.2)
[2022-09-27 15:44] LABS: HEMATOCRIT 42.6 % (32.4-45.2); HEMOGLOBIN 14.9 GM/dL (10.7-15.3); MCH 31.6 pg (25.7-33.7); MEAN CELL VOLUME 90.4 fl (80-96); MEAN PLT VOLUME 9.2 fl (7.5-11.1); PLATELET COUNT 241 10^3/uL (134-434); RBC 4.71 M/mm3 (3.60-5.2); RDW 14.7 % (11.6-15.6); WHITE BLOOD COUNT 8.4 K/mm3 (4.0-10.0)
[2022-09-27 16:34] LABS: ANISOCYTOSIS 2+; MACROCYTOSIS 0
== END 2022-09-27 17:30 | disposition home or self-care (01) ==
LOC: FER 14:04
PROC: 3E0333Z Introduction of Anti-inflammatory into Peripheral Vein, Percutaneous Approach (ICD-10-PCS; principal; 2022-09-27)
DX: M54.6 Pain in thoracic spine (principal); M54.2 Cervicalgia; R53.1 Weakness; R20.2 Paresthesia of skin
CPT/HCPCS: 36415; 72125-TC; 72128-TC; 80053; 85027; 99284-25

== ENCOUNTER 2023-07-11 17:23 | Emergency (ER) | payer OTHER ==
[2023-07-11 17:38] VITALS: BP 130/70; PULSE 87; RESP 18; TEMP 98; BMI 27.1
[2023-07-11] MEDS ORDERED: IBUPROFEN 600 MG TABLET (FP) PO ONE ×2 (19:21→19:25)
[2023-07-11] MEDS ORDERED: ACETAMINOPHEN 500 MG TABLET (FP) PO ONE (19:21)
[2023-07-11] MEDS ORDERED: ACETAMINOPHEN 500 MG TABLET (FP) ONE (19:25)
== END 2023-07-11 19:59 | disposition home or self-care (01) ==
LOC: JERFT 17:23 → JER 17:23 → JERFT 19:59
DX: S92.355A Nondisplaced fracture of fifth metatarsal bone, left foot, initial encounter for closed fracture (principal); M79.672 Pain in left foot; W10.9XXA Fall (on) (from) unspecified stairs and steps, initial encounter; Y93.01 Activity, walking, marching and hiking
CPT/HCPCS: 73610-TC-LT-FY; 73630-TC-LT; 99283-25